=== PATIENT | female | born 1955 | race Caucasian/White ===

== ENCOUNTER → 2017-08-07 | Outpatient (CLI) | payer OTHER ==
[~2017-08-07] MED LIST: CITA40TA4 PO; FISH1000 PO; LEVO25TA4 PO; MULTTAB24 PO; SIMV40TA PO
[2017-08-07 14:19] LABS: AUTOMATED NEUTROPHIL # 2.9 TH/MM3 (1.8-7.7); BASOPHIL % 0.8 % (0.0-2.0); EOSINOPHIL # 0.2 TH/MM3 (0-0.4); HEMATOCRIT 40.2 % (35.0-46.0); HEMOGLOBIN 13.9 GM/DL (11.6-15.3); LYMPH % 32.3 % (9.0-44.0); LYMPHOCYTE # 1.8 TH/MM3 (1.0-4.8); MEAN CELL VOLUME 93.5 FL (80.0-100.0); MEAN CORPUSCULAR HEMOGLOBIN 32.3 PG (27.0-34.0); MEAN CORPUSCULAR HGB CONC 34.5 % (32.0-36.0); MEAN PLATELET VOLUME 7.4 FL (7.0-11.0); MONO % 11.8 % (0.0-8.0); MONOCYTE # 0.6 TH/MM3 (0-0.9); NEUT % 52.1 % (16.0-70.0); PLATELET COUNT 248 TH/MM3 (150-450); RED CELL DISTRIBUTION WIDTH 12.8 % (11.6-17.2); WHITE BLOOD COUNT 5.5 TH/MM3 (4.0-11.0)
[2017-08-07 14:24] LABS: BILIRUBIN, URINE NEG (NEG); BLOOD, URINE NEG (NEG); GLUCOSE,URINE NEG (NEG); KETONE, URINE NEG (NEG); NITRITE,URINE NEG (NEG); SQUAMOUS EPITHELIAL CELL URINE 2 /hpf (0-5); URINE COLOR LIGHT-YELLOW (YELLW/STRAW); URINE LEUKOCYTE ESTERASE NEG (NEG)
[2017-08-07 14:40] LABS: ALT (GPT) 31 U/L (10-53); AST (GOT) 20 U/L (15-37); BICARBONATE 30.1 MEQ/L (21.0-32.0); BLOOD UREA NITROGEN 18 MG/DL (7-18); CHLORIDE 105 MEQ/L (98-107); CREATININE 0.58 MG/DL (0.50-1.00); GLOMERULAR FILTRATION RATE 105 ML/MIN (>89); GLUCOSE,FASTING 91 MG/DL (74-99); SODIUM (NA) 138 MEQ/L (136-145)
[2017-08-07 14:43] LABS: ALKALINE PHOSPHATASE 92 U/L (45-117); TOTAL BILIRUBIN ADULT 0.4 MG/DL (0.2-1.0); TOTAL PROTEIN 7.6 GM/DL (6.4-8.2)
--- NOTE | 2017-08-08 14:41 | EKG ---
Date Performed: 08/07/2017 Time Performed: 14:08:47 PTAGE: 62 years EKG: Sinus rhythm PREVIOUS TRACING : 05/01/2016 13.45 DOCTOR: Santo Alves Interpretating Date/Time 08/08/2017 14:39:53
== END ==
LOC: CPRE 13:47
PROVIDERS: ATTEND Obstetrics & Gynecology Gynecology
DX: Z01.812 Encounter for preprocedural laboratory examination (principal); Z01.810 Encounter for preprocedural cardiovascular examination; N99.3 Prolapse of vaginal vault after hysterectomy
CPT/HCPCS: 36415; 80053; 81001; 85025; 93005

== ENCOUNTER → 2017-08-22 | Day surgery (SDC) | payer OTHER ==
--- NOTE | 2017-08-07 14:12 | MH ---
cc: Pedrito Umanzor MD, John A MD DATE OF ADMISSION: 08/22/2017 Scheduled for admission on 08/22/2017 for anterior-posterior repair, vaginal vault suspension. HISTORY OF PRESENT ILLNESS: The patient is a 62-year-old white female 1, para 1 who has a history of laparoscopically assisted vaginal hysterectomy with bilateral salpingo-oophorectomy with anterior-posterior repair and she has had recurrence of her pelvic prolapse. She is symptomatic with pelvic pressure and discomfort. 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 She has been apprised of options and wants to proceed with surgery. PAST MEDICAL HISTORY: Negative for heart, lung, liver disease; hypertension, diabetes or strokes. PAST SURGICAL HISTORY: LAVH/BSO/anterior-posterior repair. OBSTETRIC HISTORY: One vaginal delivery. SOCIAL HISTORY: She does not smoke, use alcohol or drugs. , has good social support. ALLERGIES: SULFA. FAMILY HISTORY: Noncontributory. REVIEW OF SYSTEMS: As above, pelvic pressure, discomfort. No stress incontinence. Moderate dyspareunia. Remainder of 14-point review negative. PHYSICAL EXAMINATION: VITAL SIGNS: She is afebrile. Vital signs stable. Blood pressure is 120/70, height is 5 feet 6, weight is 142, BMI is 23. GENERAL: The patient is alert and oriented, in no acute distress, no sign of cognitive dysfunction or depression. HEENT: Within normal limits. NECK: Supple, no JVD. CHEST: Clear. HEART: Regular rate and rhythm. ABDOMEN: Soft, nontender, no hepatosplenomegaly. BACK: No CVA tenderness. PELVIC: Exam shows POP-Q score Aa is 0, Ap is -1, C is +5, genital hiatus is 6, perineal body is 3, total vaginal length is 10. Further exam under anesthesia. EXTREMITIES: Warm. SKIN: Without rashes. NEUROLOGIC: Nonfocal. No DVT signs. ASSESSMENT: The patient with stage IV pelvic organ prolapse. The patient and I discussed options for management and treatment. She is at increased risk for failure secondary to her prior surgical history as well as the advanced nature of her pelvic prolapse. Also discussed issues regarding urinary and bowel dysfunction as well as dyspareunia, damage to surround organs, bleeding, infection and other issues do remain to the procedure including DVT, blood loss, sciatic nerve injury. At this point, the patient expresses understanding with the plan and elects to proceed. We anticipate outpatient procedure. We will use DVT prophylaxis with sequential compression devices and antibiotic prophylaxis with Ancef 2 grams. Anticipate outpatient procedure. MD MARANDA Germain/PILAR , 01:44 PM , 02:10 PM
[~2017-08-22] VITALS: Ht 167.6 cm; Wt 65.8 kg
[~2017-08-22] MED LIST changes: +CEFAZOLIN INJ 2,000 MG in SODIUM CHLORIDE 0.9% INJ 100 ML IV ONE; +CHLORHEXIDINE GLUCONATE 2 % 1 PACK (2 CLOTHS) TOPICAL PRN; +DO NOT ADM ANY ANTICOAGULANT DRUGS PRN; +FLUORESCEIN SOD 10% SOLN 500 MG/5 ML AMP ONE; +KETOROLAC TROMETHAMINE 30 MG/ML (IVP) VIAL IV PUSH PRN; +LACTATED RINGER'S 1000 ML IV PRN; +LIDOCAINE 1%/EPINEPHrine 1:100,000 SOLN 50 ML VIAL ONE; +METHYLENE BLUE 10 MG/ML VIAL OTHER ONE; +METOPROLOL TARTRATE 25 MG TAB PO PRN; +MIDAZOLAM HCL 2 MG/2 ML VIAL ONE; +ONDANSETRON HCL 4 MG/2 ML VIAL IV PUSH PRN; +POVIDONE IODINE 5% (ANTISEPSIS KIT) 4 APPLICATIONS EACH NARE PRN; +SODIUM CHLORID 0.9% 500 ML IV PRN; +traMADol HCL 50 MG TAB PO PRN
--- NOTE | 2017-08-22 12:22 | MP ---
cc: Pedrito Umanzor MD DATE OF OPERATION: 08/22/2017 PREOPERATIVE DIAGNOSIS: Vaginal vault prolapse following prior hysterectomy, code N 99.3; also, posterior compartment defect, code N81.6. POSTOPERATIVE DIAGNOSIS: Vaginal vault prolapse following prior hysterectomy, code N 99.3; also, posterior compartment defect, code N81.6. PROCEDURE: Sacrospinous ligament suspension using Prolene suture, right side, code 64100; posterior repair with enterocele, [id number]. SURGEON: Pedrito Umanzor MD ANESTHESIOLOGIST: Laryngeal mask. FISH HATCHERY MAN(S): [employer] staff x 2. FLUIDS: 1000 units of crystalloid. URINE OUTPUT: 200 mL BLOOD LOSS: 50 mL FINDINGS: External genitalia normal. POP-Q score Aa is +3, Ap is +3, point C is +6, total vaginal length is 10, genital hiatus is 8, perineal body is 4. Following repair, Aa is -3, Ap is -3, point C is -8, total vaginal length is 8, genital hiatus is 5, perineal body is 5. Rectal exam was normal following repair. No significant suture bridge. No damage to the rectum. SPECIMENS: None. COMPLICATIONS: None. DISPOSITION: To recovery stable. COUNTS: Needle and sponge count correct. DRAINS: Lentz catheter. ANTIBIOTIC PROPHYLAXIS: Ancef 2 grams. DVT PROPHYLAXIS: Sequential compression devices. TIMEOUT PROCEDURE AND IDENTIFICATION: Per protocol. SUMMARY OF INDICATION FOR PROCEDURE: The patient with symptomatic pelvic organ prolapse manifested mainly by vaginal vault prolapse. She has been apprised of the options, risks, benefits, alternatives, as well as expectations and opted for a vaginal suspension without the use of mesh. DESCRIPTION OF PROCEDURE: The patient was taken to the operating theatre, prepped and draped in fashion appropriate for planned procedure. She was in dorsal lithotomy position with careful attention paid to placement of legs in stirrups to avoid undue stress to sensitive neurovascular structures. The above findings noted. Neurovascular integrity documented. The most striking defect was the vaginal vault prolapse. We did place a Lentz catheter and instilled methylene blue into the bladder. We started with infiltrating the epinephrine/lidocaine solution in the perineum. We then made an incision with sharp scissors from the introitus to the apex of the vagina. We had marked the dimples of the vagina from the site of her previous hysterectomy with 0 Vicryl suture. We reflected the rectum. We did encounter enterocele. The enterocele sac was excised and closed with pursestring-type suture. On the right side, we identified the sacrospinous ligament using a triangulation technique with 3 retractors. There was a small bleeder noted, superficial venous bleeder, that was rendered hemostatic with isolation and cautery. The sacrospinous ligament was identified. A suture was placed, 0 Prolene. We then placed the felix stitch at the site of the apex on the right, continued with the posterior repair in standard fashion, trimmed the vaginal mucosa minimally. We then did use hemostatic matrix and Surgicel to obviate the need for vaginal packing, completed the posterior repair, closed the vaginal mucosa, cinched down the felix stitch, and this brought the vaginal apex up nicely. Some slight deviation to the right eye. We had good hemostasis of the operative field. We did close the remainder of the vaginal mucosa with a delayed absorbable suture. At this point, there really was not a considerable anterior compartment defect to repair, so since I was concerned about possibly having a vaginal caliber that was too small, we decided not to do anything anterior. We did check the rectal exam with above findings. Checked the suture line. All areas were hemostatic. Procedure was concluded. The patient to recovery in stable condition. MD MARANDA Germain/PAT , 11:46 AM , 12:19 PM [email or web address]
[2017-08-22 12:45] VITALS: BP 125/79; PULSE 79; RESP 18; TEMP 97.9; O2SAT 98
== END | disposition home or self-care (01) ==
LOC: HSDC 07:16
PROVIDERS: ATTEND Obstetrics & Gynecology Gynecology
DX: N99.3 Prolapse of vaginal vault after hysterectomy (principal)
CPT/HCPCS: 00942; 57250; 57285; 88302; J0690; J2250; J3010; J7120; 88305